=== PATIENT | female | born 1980 | race Caucasian/White ===

== ENCOUNTER 2018-11-07 08:47 | Inpatient (IN) | payer MEDICAID ==
[~2018-11-07] VITALS: Ht 152.4 cm; Wt 66.7 kg
[2018-11-07] MEDS ORDERED: DEXT 5%/LR + PITOCIN 20UNITS/L 1,000 ML IV SCH (09:22)
[2018-11-07] MEDS ORDERED: LACTATED RINGERS 1,000 ML IV SCH (09:22)
[2018-11-07] MEDS ORDERED: CARBOPROST TROMETHAMINE 250 MCG/ML AMPUL IM PRN (09:30)
[2018-11-07] MEDS ORDERED: BUTORPHANOL TARTRATE 2 MG/ML VIAL IV PRN (09:30)
[2018-11-07] MEDS ORDERED: NALOXONE HCL 0.4 MG/ML 1ML VIAL IM PRN (09:30)
[2018-11-07] MEDS ORDERED: MISOPROSTOL 100MCG TABLET VG SCH (09:30)
[2018-11-07] MEDS ORDERED: LIDOCAINE HCL 1% 20ML VIAL (Pyxis) INJ INFIL SCH (09:30)
[2018-11-07] MEDS ORDERED: METHYLERGONOVINE MALEATE 0.2 MG/ML IM PRN (09:30)
[2018-11-07] MEDS ORDERED: MINERAL OIL 30ML BOTTLE PO NR (10:00)
[2018-11-07] MEDS: DEXT 5%/LR + PITOCIN 20UNITS/L 1,000 ML IV SCH ×2 (10:00→14:09)
[2018-11-07 10:28] LABS: BASOPHILS % 0.8 % (0.0-2.0); EOSINOPHILS % 0.5 % (0.0-5.0); HEMATOCRIT. 41.2 % (36.0-48.0); HEMOGLOBIN. 13.9 g/dL (12.0-16.0); LYMPHOCYTES % 26.1 % (20.0-50.0); MEAN CORPUSCULAR HEMOGLOBIN 28.3 pg (28.0-32.0); MEAN CORPUSCULAR VOLUME 83.8 fL (81.0-99.0); MEAN PLATELET VOLUME 9.8 fl (7.4-10.4); NEUTROPHILS % 67.6 % (40.0-76.0); PLATELET 249 x1000/uL (130-400); RED BLOOD CELL COUNT 4.92 mill/uL (4.2-5.4); RED CELL DISTRIBUTION WIDTH 15.2 % (11.6-14.6)
[2018-11-07] MEDS ORDERED: PENICILLIN G POTASSIUM 5 MMU in DEXT 5% WATER 100 ML IV SCH (10:30)
[2018-11-07 10:38] LABS: INR 0.9
[2018-11-07 11:58] LABS: HEPATITIS B SURFACE ANTIGEN NEGATIVE
[2018-11-07] MEDS ORDERED: LANOLIN OINT 7GM TUBE TOP PRN (12:00)
[2018-11-07] MEDS ORDERED: GLYCERIN/WITCH HAZEL LEAF MEDICATED PAD TOP PRN (12:00)
[2018-11-07] MEDS ORDERED: IBUPROFEN 800MG TABLET PO PRN (12:00)
[2018-11-07] MEDS ORDERED: BENZOCAINE/LANOLIN/ALOE VERA SPRAY TOP PRN (12:00)
[2018-11-07] MEDS ORDERED: RHO(D) IMMUNE GLOBULIN 300 MCG/SYR IM PRN (12:00)
[2018-11-07] MEDS ORDERED: IBUPROFEN 400MG TABLET PO PRN (12:00)
[2018-11-07] MEDS ORDERED: HEMORRHOIDAL SUPP PR PRN (12:00)
[2018-11-07] MEDS ORDERED: ACETAMINOPHEN WITH CODEINE 300/30MG TABLET PO PRN (12:00)
[2018-11-07 14:30] VITALS: BP 108/55
[2018-11-07 15:00] VITALS: BP 104/57
[2018-11-07] MEDS ORDERED: PENICILLIN G POTASSIUM 2.5 MMU in DEXTROSE 5% WATER 50 ML IV SCH (15:00)
[2018-11-07 15:17] LABS: KETONES URINE NEGATIVE (NEGATIVE); LEUKOCYTE ESTERASE URINE NEGATIVE (NEGATIVE); NITRITE URINE NEGATIVE (NEGATIVE); OCCULT BLOOD URINE 2+ (NEGATIVE); PH URINE 6.5 (4.5-8.0); PROTEIN URINE 1+ (NEGATIVE); SPECIFIC GRAVITY URINE 1.016 (1.005-1.030); UROBILINOGEN URINE 0.2 E.U./dL (0.2-1.0)
[2018-11-07 15:19] LABS: CLARITY URINE CLOUDY (CLEAR); COLOR URINE BLOODY (YELLOW)
[2018-11-07 15:40] LABS: *AMPHETAMINES SCREEN URINE NEGATIVE (NEGATIVE); *BARBITURATES SCREEN URINE NEGATIVE (NEGATIVE); *BENZODIAZEPINES SCREEN URINE NEGATIVE (NEGATIVE); *COCAINE SCREEN URINE NEGATIVE (NEGATIVE)
[2018-11-07 15:41] LABS: CANNABINOID URINE SCREEN NEGATIVE (NEGATIVE); METHADONE URINE SCREEN NEGATIVE (NEGATIVE); PHENCYCLIDINE URINE SCREEN NEGATIVE (NEGATIVE)
[2018-11-07 15:47] LABS: OPIATES URINE SCREEN NEGATIVE (NEGATIVE)
[2018-11-07 16:00] VITALS: BP 102/51
[2018-11-07] MEDS: DOCUSATE SODIUM 100MG CAPSULE PO SCH (20:57)
[2018-11-07 22:00] VITALS: BP 101/54
[2018-11-08 03:58] VITALS: BP 107/70
[2018-11-08 05:36] VITALS: BP 107/70
[2018-11-08 07:31] LABS: HEMATOCRIT 36.1 % (36.0-48.0); HEMOGLOBIN 12.2 g/dL (12.0-16.0)
[2018-11-08 08:00] VITALS: BP 101/53
[2018-11-08] MEDS: PRENATAL VIT/FE FUMARATE/FA TABLET PO SCH (08:18)
[2018-11-08 15:52] VITALS: BP 101/58
[2018-11-08 19:25] VITALS: BP 100/53
[2018-11-08] MEDS: DOCUSATE SODIUM 100MG CAPSULE PO SCH (23:28)
[2018-11-09] VITALS: BP 98/58
[2018-11-09 04:00] VITALS: BP 98/58
[2018-11-09 07:45] VITALS: BP 95/46
[2018-11-09] MEDS: PRENATAL VIT/FE FUMARATE/FA TABLET PO SCH (08:34)
== END 2018-11-09 12:00 | disposition home or self-care (01) | DRG 560 ==
LOC: OBSVTOIN 08:47 → 8 EST LDRP 08:47 → L&D 15:15 → 8EST 16:37
PROVIDERS: ADMIT Obstetrics & Gynecology Obstetrics; ATTEND Obstetrics & Gynecology Obstetrics
PROC: 10E0XZZ Delivery of Products of Conception, External Approach (ICD-10-PCS; principal; 2018-11-07)
DX: O69.81X0 Labor and delivery complicated by cord around neck, without compression, not applicable or unspecified (principal); D62 Acute posthemorrhagic anemia; O99.02 Anemia complicating childbirth; Z37.0 Single live birth; Z3A.40 40 weeks gestation of pregnancy
CPT/HCPCS: 36415; 80305; 81003; 85014; 85018; 86592; 86703; 86762; 86850; 86900; 87340; J2540; J2590; J7060; J7120